=== PATIENT | female | born 1945 | race Caucasian/White ===

== ENCOUNTER 2018-06-27 01:50 | Inpatient (IN) | payer MEDICARE ==
[~2018-06-27] VITALS: Ht 172.7 cm; Wt 72.2 kg
[2018-06-27] MEDS ORDERED: ALPR0.5T5 PO (02:20)
[2018-06-27] MEDS ORDERED: LOSA1TAB25 PO (02:20)
[2018-06-27] MEDS ORDERED: ATOR10TA9 PO (02:20)
[2018-06-27] MEDS ORDERED: METF750T2 PO (02:20)
[2018-06-27] MEDS ORDERED: LEVO25TA2 PO (02:20)
[2018-06-27] MEDS ORDERED: MORPHINE SULFATE 4 MG/ML, 1ML ONE ×2 (02:23→03:10)
[2018-06-27] MEDS ORDERED: SODIUM CHLORIDE FLUSH 10ML SYR IVF ONE ×2 (02:30→03:30)
[2018-06-27] MEDS: MORPHINE SULFATE 4 MG/ML, 1ML IVPush PRN ×2 (02:37→03:12)
[2018-06-27 02:48] LABS: BASOPHILS # (AUTO) 0.12 x10^3/uL (0-0.1); BASOPHILS % (AUTO) 1 % (0-1); EOSINOPHILS # (AUTO) 0.27 x10^3/uL (0-0.4); EOSINOPHILS % (AUTO) 3 % (1-7); LYMPHOCYTES # (AUTO) 1.74 x10^3/uL (1-3.4); LYMPHOCYTES % (AUTO) 19 % (22-44); MD NO; MEAN CORPUSCULAR HEMOGLOBIN 31.7 pg (27.0-34.8); MEAN CORPUSCULAR HGB CONC 34.8 g/dL (32.4-35.8); MEAN CORPUSCULAR VOLUME 91.1 fL (80-100); MEAN PLATELET VOLUME 8.3 fL (7.4-10.4); MONOCYTES # (AUTO) 0.42 x10^3/uL (0.2-0.8); MONOCYTES % (AUTO) 5 % (2-9); NEUTROPHILS # (AUTO) 6.69 x10^3/uL (1.8-6.8); NEUTROPHILS % (AUTO) 72 % (42-75); PLATELET COUNT 296 x10^3/uL (130-400); RED BLOOD COUNT 4.37 x10^6/uL (3.82-5.3); RED CELL DISTRIBUTION WIDTH 13.5 % (9.6-15.2)
[2018-06-27 02:50] LABS: CULTURE INDICATED? YES; MICROSCOPIC INDICATED
[2018-06-27 02:56] LABS: ALANINE AMINOTRANSFERASE 16 U/L (12-78); ALBUMIN 3.7 g/dL (3.4-5.0); ANION GAP 7 mmol/L (5-15); CALCIUM 8.6 mg/dL (8.5-10.1); CHLORIDE 104 mmol/L (98-107); CREATININE 1.12 mg/dL (0.55-1.02)
[2018-06-27 02:59] LABS: ALKALINE PHOSPHATASE 65 U/L (45-117); BILIRUBIN,TOTAL 0.4 mg/dL (0.2-1.0); TOTAL PROTEIN 6.7 g/dL (6.4-8.2)
[2018-06-27] MEDS ORDERED: CEFTRIAXONE PMX 1GM/50ML 50 ML ONE (03:10)
[2018-06-27] MEDS ORDERED: CEFTRIAXONE 1,000 MG in SODIUM CHLORIDE 0.9% 50 ML IV ONE (03:30)
[2018-06-27] MEDS ORDERED: SODIUM CHLORIDE 0.9% 1,000ML IVBOLUS ONE (03:30)
[2018-06-27] MEDS: CEFTRIAXONE 1,000 MG in SODIUM CHLORIDE 0.9% 50 ML IVPB SCH (04:15)
[2018-06-27] MEDS: SODIUM CHLORIDE 0.9% 1,000 ML IV SCH ×2 (04:34→15:42)
[2018-06-27] MEDS ORDERED: DEXTROSE 5% IV SCH (05:00)
[2018-06-27] MEDS ORDERED: KETOROLAC 30 MG/1 ML IV PRN (05:00)
[2018-06-27] MEDS ORDERED: ACETAMINOPHEN 325 MG TABLET PO PRN (05:00)
[2018-06-27] MEDS ORDERED: CEFTRIAXONE IV SCH ×2 (05:00)
[2018-06-27] MEDS ORDERED: SODIUM CHLORIDE 0.9% IV SCH (05:00)
[2018-06-27] MEDS ORDERED: hydrALAzine 20 MG/ML, 1ML IVPush PRN (05:00)
[2018-06-27] MEDS ORDERED: KETOROLAC 30 MG/1 ML ONE (05:21)
[2018-06-27] MEDS: INSULIN LISPRO 100 UNITS/ML, PEN SQ-INSULIN SCH ×4 (07:00→21:00)
[2018-06-27] MEDS: morphine SULFATE 10 MG/ML, 1ML IVPush PRN ×3 (08:28→15:07)
[2018-06-27] MEDS: ENOXAPARIN 40 MG/0.4 ML SQ SCH (08:37)
[2018-06-27] MEDS: LEVOTHYROXINE 25 MCG TABLET PO SCH (08:38)
[2018-06-27] MEDS: LOSARTAN 50MG TABLET PO SCH (08:38)
[2018-06-27 08:58] VITALS: BP 159/80
[2018-06-27] MEDS: TEMPLATE NON-FORMULARY MED. (Metformin Hcl** (Metformin Hcl Er**) 750 MG) PO SCH (09:00)
[2018-06-27] MEDS: ALPRAZOLAM 0.5 MG HOMEMEDPO SCH (09:00)
[2018-06-27] MEDS ORDERED: HYDROCHLOROTHIAZIDE 12.5 MG CAPSULE PO SCH (09:00)
[2018-06-27] MEDS ORDERED: ALPRAZOLAM 0.5 MG HOMEMEDPO SCH (09:00)
[2018-06-27] MEDS ORDERED: BISACODYL 5 MG EC TABLET PO SCH (13:00)
[2018-06-27] MEDS ORDERED: BISACODYL 10 MG SUPP PR PRN (13:00)
[2018-06-27 13:52] VITALS: BP 148/77
[2018-06-27] MEDS ORDERED: BISACODYL 5 MG EC TABLET PO PRN (15:30)
[2018-06-27] MEDS: ONDANSETRON ODT 4 MG PO PRN (15:49)
[2018-06-27] MEDS ORDERED: CALCIUM CARBONATE 500 MG TAB.CHEW PO PRN (16:00)
[2018-06-27 19:27] VITALS: BP 160/77
[2018-06-27] MEDS: ATORVASTATIN 10 MG TABLET PO SCH (21:26)
[2018-06-28 01:03] VITALS: BP 150/85
[2018-06-28] MEDS: morphine SULFATE 10 MG/ML, 1ML IVPush PRN (02:42)
[2018-06-28] MEDS: ONDANSETRON ODT 4 MG PO PRN ×2 (02:47→07:36)
[2018-06-28] MEDS: CEFTRIAXONE 1,000 MG in SODIUM CHLORIDE 0.9% 50 ML IVPB SCH (04:06)
[2018-06-28] MEDS: SODIUM CHLORIDE 0.9% 1,000 ML IV SCH (04:06)
[2018-06-28 05:29] LABS: BASOPHILS # (AUTO) 0.04 x10^3/uL (0-0.1); BASOPHILS % (AUTO) 0 % (0-1); EOSINOPHILS # (AUTO) 0.11 x10^3/uL (0-0.4); EOSINOPHILS % (AUTO) 1 % (1-7); LYMPHOCYTES # (AUTO) 1.15 x10^3/uL (1-3.4); LYMPHOCYTES % (AUTO) 9 % (22-44); MD NO; MEAN CORPUSCULAR HEMOGLOBIN 31.3 pg (27.0-34.8); MEAN CORPUSCULAR HGB CONC 34.2 g/dL (32.4-35.8); MEAN CORPUSCULAR VOLUME 91.4 fL (80-100); MEAN PLATELET VOLUME 8.3 fL (7.4-10.4); MONOCYTES # (AUTO) 0.47 x10^3/uL (0.2-0.8); MONOCYTES % (AUTO) 4 % (2-9); NEUTROPHILS # (AUTO) 10.89 x10^3/uL (1.8-6.8); NEUTROPHILS % (AUTO) 86 % (42-75); PLATELET COUNT 310 x10^3/uL (130-400); RED BLOOD COUNT 4.25 x10^6/uL (3.82-5.3); RED CELL DISTRIBUTION WIDTH 13.8 % (9.6-15.2)
[2018-06-28] MEDS: LEVOTHYROXINE 25 MCG TABLET PO SCH (05:31)
[2018-06-28] MEDS: ENOXAPARIN 40 MG/0.4 ML SQ SCH (05:32)
[2018-06-28 05:41] LABS: ANION GAP 7 mmol/L (5-15); CALCIUM 7.9 mg/dL (8.5-10.1); CHLORIDE 98 mmol/L (98-107)
[2018-06-28 05:43] LABS: CREATININE 0.64 mg/dL (0.55-1.02)
[2018-06-28 06:44] VITALS: BP 168/92
[2018-06-28] MEDS: INSULIN LISPRO 100 UNITS/ML, PEN SQ-INSULIN SCH ×4 (07:00→20:22)
[2018-06-28] MEDS: ALPRAZOLAM 0.5 MG HOMEMEDPO SCH (07:30)
[2018-06-28] MEDS: TEMPLATE NON-FORMULARY MED. (Metformin Hcl** (Metformin Hcl Er**) 750 MG) PO SCH (07:30)
[2018-06-28] MEDS: POTASSIUM CHLORIDE 20 MEQ TAB.ER.PRT PO SCH ×2 (07:31→17:48)
[2018-06-28] MEDS: FAMOTIDINE 20 MG TABLET PO SCH (07:32)
[2018-06-28] MEDS: LOSARTAN 50MG TABLET PO SCH (07:32)
[2018-06-28] MEDS ORDERED: MAGNESIUM CITRATE 300ML ORAL SOL PO ONE (08:00)
[2018-06-28 14:42] VITALS: BP 177/94
[2018-06-28] MEDS: ATORVASTATIN 10 MG TABLET PO SCH (20:22)
[2018-06-29] MEDS: LEVOTHYROXINE 25 MCG TABLET PO SCH (04:50)
[2018-06-29] MEDS: ENOXAPARIN 40 MG/0.4 ML SQ SCH (04:50)
[2018-06-29] MEDS: CEFTRIAXONE 1,000 MG in SODIUM CHLORIDE 0.9% 50 ML IVPB SCH (04:50)
[2018-06-29] MEDS: ONDANSETRON ODT 4 MG PO PRN (04:58)
[2018-06-29 06:30] LABS: BASOPHILS # (AUTO) 0.04 x10^3/uL (0-0.1); BASOPHILS % (AUTO) 0 % (0-1); EOSINOPHILS # (AUTO) 0.14 x10^3/uL (0-0.4); EOSINOPHILS % (AUTO) 2 % (1-7); LYMPHOCYTES % (AUTO) 14 % (22-44); MD NO; MEAN CORPUSCULAR HEMOGLOBIN 31.4 pg (27.0-34.8); MEAN CORPUSCULAR HGB CONC 34.6 g/dL (32.4-35.8); MEAN CORPUSCULAR VOLUME 90.8 fL (80-100); MEAN PLATELET VOLUME 8.1 fL (7.4-10.4); MONOCYTES # (AUTO) 0.52 x10^3/uL (0.2-0.8); MONOCYTES % (AUTO) 6 % (2-9); NEUTROPHILS % (AUTO) 79 % (42-75); PLATELET COUNT 321 x10^3/uL (130-400); RED BLOOD COUNT 4.51 x10^6/uL (3.82-5.3)
[2018-06-29] MEDS ORDERED: METRONIDAZOLE PMX 500MG/100ML 100 ML IV SCH (06:30)
[2018-06-29 06:39] LABS: ALBUMIN 3.7 g/dL (3.4-5.0); ANION GAP 6 mmol/L (5-15); CALCIUM 8.2 mg/dL (8.5-10.1); CHLORIDE 100 mmol/L (98-107); CREATININE 0.74 mg/dL (0.55-1.02)
[2018-06-29] MEDS: INSULIN LISPRO 100 UNITS/ML, PEN SQ-INSULIN SCH ×2 (06:49→11:10)
[2018-06-29] MEDS: FAMOTIDINE 20 MG TABLET PO SCH (07:22)
[2018-06-29] MEDS: TEMPLATE NON-FORMULARY MED. (Metformin Hcl** (Metformin Hcl Er**) 750 MG) PO SCH (07:22)
[2018-06-29] MEDS: ALPRAZOLAM 0.5 MG HOMEMEDPO SCH (07:22)
[2018-06-29 07:35] VITALS: BP 160/88
[2018-06-29] MEDS: LOSARTAN 50MG TABLET PO SCH (07:46)
[2018-06-29] MEDS ORDERED: CIPR500T3 PO (10:41)
[2018-06-29] MEDS ORDERED: METR500T8 PO (10:41)
== END 2018-06-29 13:55 | disposition home or self-care (01) | DRG 690 ==
LOC: ED 03:22 → SUATTDRO 04:33 → EDIP 05:05 → 4NOR 05:36 → DCLOUNGE 06-29 13:40
PROVIDERS: ADMIT Hospitalist; ATTEND Hospitalist
DX: N10 Acute pyelonephritis (principal); K57.32 Diverticulitis of large intestine without perforation or abscess without bleeding; E03.9 Hypothyroidism, unspecified; E11.9 Type 2 diabetes mellitus without complications; B96.1 Klebsiella pneumoniae [K. pneumoniae] as the cause of diseases classified elsewhere; F41.9 Anxiety disorder, unspecified; I10 Essential (primary) hypertension; K59.00 Constipation, unspecified; E87.6 Hypokalemia; M54.9 Dorsalgia, unspecified; E66.9 Obesity, unspecified; K62.3 Rectal prolapse; Z87.440 Personal history of urinary (tract) infections; Z90.710 Acquired absence of both cervix and uterus; Z68.24 Body mass index [BMI] 24.0-24.9, adult; N17.9 Acute kidney failure, unspecified
CPT/HCPCS: 36415; 74176; 80048; 80053; 81001; 82040; 82962; 83690; 83735; 84100; 85025; 87077; 87086; 87186; 96374; 96375; 99285; J0696; J1650; J1885; Q0162; J2270; J7030

== ENCOUNTER 2020-12-08 21:47 | Observation (INO) | payer MEDICARE ==
[~2020-12-08] VITALS: Ht 172.7 cm; Wt 72.1 kg
[~2020-12-08 21:47] MED LIST: ALPR0.5T5 PO; ATOR10TA9 PO; CIPR500T3 PO; LEVO25TA2 PO; LOSA1TAB25 PO; METF750T42 PO; METR-90 PO
--- NOTE | 2020-12-08 22:07 | NUR ---
Pt hooked up to pt escort, RN at bedside, provider at bedside, pt's son at bedside. Pt shaking, voice shaking. Reports she does not currently feel palpitations or racing heart.
[2020-12-08] MEDS ORDERED: SODIUM CHLORIDE 0.9% 1,000ML IVBOLUS ONE (22:30)
[2020-12-08] MEDS ORDERED: SODIUM CHLORIDE FLUSH 10ML SYR IVF ONE (22:30)
[2020-12-08] MEDS ORDERED: LORazepam 2 MG/ML, 1ML IVPush ONE (22:30)
[2020-12-08] MEDS ORDERED: ONDANSETRON 2MG/ML, 2ML IVPush ONE (22:30)
[2020-12-08] MEDS ORDERED: ONDANSETRON 2MG/ML, 2ML ONE (22:36)
[2020-12-08] MEDS ORDERED: LORazepam 2 MG/ML, 1ML ONE (22:37)
[2020-12-08 23:13] LABS: BASOPHILS % (AUTO) 0 % (0-1); EOSINOPHILS % (AUTO) 0 % (1-7); LYMPHOCYTES % (AUTO) 5 % (22-44); MEAN CORPUSCULAR HEMOGLOBIN 30.5 pg (27.0-34.8); MEAN CORPUSCULAR HGB CONC 34.4 g/dL (32.4-35.8); MEAN PLATELET VOLUME 8.1 fL (7.4-10.4); MONOCYTES % (AUTO) 2 % (2-9); NEUTROPHILS % (AUTO) 93 % (42-75); PLATELET COUNT 297 x10^3/uL (130-400); RED BLOOD COUNT 4.48 x10^6/uL (3.82-5.3); RED CELL DISTRIBUTION WIDTH 13.8 % (9.6-15.2)
[2020-12-08 23:20] LABS: ALBUMIN 3.8 g/dL (3.4-5.0); ANION GAP 11 mmol/L (5-15); CALCIUM 8.4 mg/dL (8.5-10.1); CHLORIDE 101 mmol/L (98-107)
[2020-12-08 23:31] LABS: ALANINE AMINOTRANSFERASE 19 U/L (12-78); ALKALINE PHOSPHATASE 82 U/L (45-117); BILIRUBIN,TOTAL 0.7 mg/dL (0.2-1.0); CREATININE 0.96 mg/dL (0.55-1.02); TOTAL PROTEIN 6.8 g/dL (6.4-8.2)
--- NOTE | 2020-12-08 23:33 | NUR ---
Pt reports they feel "calmer" and they don't feel shaky anymore. Pt resting, eyes closed, awakens to nurse entering room. Breathing equal, nonlabored.
[2020-12-08 23:34] LABS: MD SCAN
[2020-12-08 23:43] LABS: FREE T4 (FREE THYROXINE) 1.43 ng/dL (0.76-1.46)
--- NOTE | 2020-12-08 23:53 | NUR ---
UA collected and tubed to lab. Pt ambulated to bathroom- felt very dizzy, unsteady on feet.
[2020-12-09 00:03] LABS: MICROSCOPIC AUTO
[2020-12-09 01:38] LABS: TROPONIN I < 0.015 ng/mL (0.000-0.045)
[2020-12-09] MEDS ORDERED: OMNIPAQUE 350 MG/ML, 100ML BOTTLE ONE (01:41)
--- NOTE | 2020-12-09 02:29 | NUR ---
Provider at bedside.
[2020-12-09] MEDS ORDERED: DIPHENHYDRAMINE 25 MG CAPSULE PO ONE (03:00)
[2020-12-09] MEDS ORDERED: LORazepam 1MG TABLET PO ONE (03:00)
[2020-12-09 03:11] VITALS: BP 136/72
[2020-12-09] MEDS ORDERED: POLY17PO5 PO (04:47)
[2020-12-09] MEDS ORDERED: ACETAMINOPHEN 325 MG TABLET PO PRN (06:00)
[2020-12-09] MEDS ORDERED: ONDANSETRON 2MG/ML, 2ML IVPush PRN (06:00)
[2020-12-09] MEDS: CEFTRIAXONE PMX 1GM/50ML 50 ML IV SCH (06:13)
[2020-12-09] MEDS: LEVOTHYROXINE 25 MCG TABLET PO SCH (06:14)
[2020-12-09 06:31] VITALS: BP 134/81
[2020-12-09] MEDS: INSULIN LISPRO 100 UNITS/ML, PEN SQ-INSULIN SCH ×4 (07:00→21:36)
[2020-12-09] MEDS: POLYETHYLENE GLYCOL 17 GM PACKET PO SCH (07:47)
[2020-12-09 12:05] VITALS: BP 126/59
[2020-12-09 18:58] VITALS: BP 151/79
[2020-12-09] MEDS ORDERED: ATORVASTATIN 10 MG TABLET PO SCH (21:00)
[2020-12-10 00:42] VITALS: BP 97/55
[2020-12-10] MEDS ORDERED: DIPHENHYDRAMINE 25 MG CAPSULE PO ONE (03:30)
[2020-12-10] MEDS: CEFTRIAXONE PMX 1GM/50ML 50 ML IV SCH (05:11)
[2020-12-10] MEDS: LEVOTHYROXINE 25 MCG TABLET PO SCH (05:11)
[2020-12-10 06:49] LABS: BASOPHILS % (AUTO) 1 % (0-1); EOSINOPHILS % (AUTO) 1 % (1-7); LYMPHOCYTES % (AUTO) 7 % (22-44); MEAN CORPUSCULAR HEMOGLOBIN 30.9 pg (27.0-34.8); MEAN CORPUSCULAR HGB CONC 34.4 g/dL (32.4-35.8); MEAN PLATELET VOLUME 7.9 fL (7.4-10.4); MONOCYTES % (AUTO) 5 % (2-9); NEUTROPHILS % (AUTO) 87 % (42-75); PLATELET COUNT 259 x10^3/uL (130-400); RED BLOOD COUNT 4.55 x10^6/uL (3.82-5.3); RED CELL DISTRIBUTION WIDTH 13.8 % (9.6-15.2)
[2020-12-10 06:51] LABS: ANION GAP 6 mmol/L (5-15); CALCIUM 8.7 mg/dL (8.5-10.1); CHLORIDE 101 mmol/L (98-107); CREATININE 0.87 mg/dL (0.55-1.02)
[2020-12-10 06:52] VITALS: BP 133/78
[2020-12-10 06:55] LABS: MD NO
[2020-12-10] MEDS: INSULIN LISPRO 100 UNITS/ML, PEN SQ-INSULIN SCH ×2 (07:00→11:00)
[2020-12-10] MEDS: POLYETHYLENE GLYCOL 17 GM PACKET PO SCH (08:15)
[2020-12-10] MEDS ORDERED: AMOX1TAB64 PO (12:41)
== END 2020-12-10 14:30 | disposition home or self-care (01) ==
LOC: ED 12-09 02:23 → INTOOBSV 12-09 03:04 → EDIP 12-09 03:04 → 4WST 12-09 03:09
PROVIDERS: ADMIT Family Medicine; ATTEND Internal Medicine
DX: D72.829 Elevated white blood cell count, unspecified (principal); R65.10 Systemic inflammatory response syndrome (SIRS) of non-infectious origin without acute organ dysfunction; E11.65 Type 2 diabetes mellitus with hyperglycemia; E03.9 Hypothyroidism, unspecified; R42 Dizziness and giddiness; E78.5 Hyperlipidemia, unspecified; K59.09 Other constipation; I10 Essential (primary) hypertension; E87.2 Acidosis; R00.0 Tachycardia, unspecified; K44.9 Diaphragmatic hernia without obstruction or gangrene; K57.30 Diverticulosis of large intestine without perforation or abscess without bleeding; G89.29 Other chronic pain; R82.90 Unspecified abnormal findings in urine; F41.9 Anxiety disorder, unspecified; Z79.899 Other long term (current) drug therapy; Z87.440 Personal history of urinary (tract) infections; Z90.710 Acquired absence of both cervix and uterus
CPT/HCPCS: 36415; 71045; 71275; 74177; 80048; 80053; 81001; 82962; 83036; 83605; 83735; 84100; 84145; 84439; 84443; 84484; 85025; 87040; 87086; 93005; 96365; 96366; 96375; 97162; 97166; 99285; G0378; J0696; J1815; J2060; J2405; J7030; Q0163; Q9967

== ENCOUNTER → 2021-07-01 | Outpatient (CLI) | payer MEDICARE ==
[~2021-07-01] MED LIST changes: -ALPR0.5T5 PO; +ALPR0.5T9 PO; +AMOX1TAB64 PO; -CIPR500T3 PO; +CIPR500T4 PO; +NITR100C56 PO; +POLY17PO5 PO
[2021-07-01 13:16] LABS: ALANINE AMINOTRANSFERASE 16 U/L (12-78); ALBUMIN 4.2 g/dL (3.4-5.0); CALCIUM 9.3 mg/dL (8.5-10.1); CREATININE 0.83 mg/dL (0.55-1.02)
[2021-07-01 13:18] LABS: ALKALINE PHOSPHATASE 76 U/L (45-117); BILIRUBIN,TOTAL 0.6 mg/dL (0.2-1.0); TOTAL PROTEIN 7.3 g/dL (6.4-8.2)
[2021-07-01 13:25] LABS: CHLORIDE 95 mmol/L (98-107)
[2021-07-01 13:26] LABS: ANION GAP 11 mmol/L (5-15)
== END | disposition home or self-care (01) ==
LOC: STAR 11:53
PROVIDERS: ATTEND Obstetrics & Gynecology Female Pelvic Medicine and Reconstructive Surgery
DX: Z01.818 Encounter for other preprocedural examination (principal); R10.2 Pelvic and perineal pain; N81.10 Cystocele, unspecified; N81.6 Rectocele; N39.3 Stress incontinence (female) (male)
CPT/HCPCS: 36415; 80053; 93005

== ENCOUNTER 2021-07-06 10:29 | Day surgery (SDC) | payer MEDICARE ==
[~2021-07-06] VITALS: Ht 172.7 cm; Wt 67.2 kg
[~2021-07-06 10:29] MED LIST changes: +ACETAMINOPHEN 325 MG TABLET PO PRN; +BUPIVACAINE/PF 0.25% ONE; +EPHEDRINE 50 MG/ML, 1ML IVPush PRN; +EPINEPHRINE 1 MG/ML, 1ML ONE; +FENTANYL PF 100 MCG/2ML IV PRN; +GENTAMICIN 80 MG/2 ML ONE; +HYDROmorphone 1 MG/ML, 1ML INJ IVPush PRN; +LABETALOL 5MG/ML, 20ML IV PRN; +LIDOCAINE/PF 1%, 30ML ONE; +MEPERIDINE/PF 25MG/0.5ML IVPush PRN; +ONDANSETRON 2MG/ML, 2ML IVPush PRN; +OXYcodone 5 MG/5 ML ORAL.SOL UDC PO PRN; +PROMETHAZINE 25 MG/ML, 1ML IVPush PRN; +VANCOMYCIN 500 MG ONE; +hydrALAzine 20 MG/ML, 1ML IV PRN
[2021-07-06] MEDS ORDERED: LACTATED RINGERS 1,000 ML IV SCH (11:00)
[2021-07-06] MEDS ORDERED: CHLORHEXIDINE 15 ML UDC PO ONE (11:00)
[2021-07-06 11:24] VITALS: BP 151/73
[2021-07-06] MEDS ORDERED: FENTANYL PF 100 MCG/2ML ONE (14:34)
[2021-07-06] MEDS ORDERED: ONDANSETRON 2MG/ML, 2ML ONE (14:37)
[2021-07-06] MEDS ORDERED: LIDOCAINE-MPF 2% ,5ML ONE ×2 (14:37→14:56)
[2021-07-06] MEDS ORDERED: DEXAMETHASONE 4 MG/ML, 1ML ONE (14:37)
[2021-07-06] MEDS ORDERED: PROPOFOL 10 MG/ML, 20ML ONE (14:37)
[2021-07-06] MEDS ORDERED: CEFAZOLIN 1,000 MG ONE (14:37)
[2021-07-06] MEDS ORDERED: SODIUM CHLORIDE 0.9% PF 10ML ONE (14:37)
[2021-07-06] MEDS ORDERED: KETOROLAC 30 MG/1 ML ONE (14:56)
[2021-07-06] MEDS ORDERED: EPHEDRINE 50 MG/ML, 1ML ONE (15:12)
== END 2021-07-06 17:32 | disposition home or self-care (01) ==
LOC: OUT 10:29
PROVIDERS: ATTEND Obstetrics & Gynecology Female Pelvic Medicine and Reconstructive Surgery
DX: N39.3 Stress incontinence (female) (male) (principal); N81.89 Other female genital prolapse; N81.11 Cystocele, midline; N81.6 Rectocele; I10 Essential (primary) hypertension; E11.9 Type 2 diabetes mellitus without complications; E03.9 Hypothyroidism, unspecified; E78.5 Hyperlipidemia, unspecified; F41.9 Anxiety disorder, unspecified; Z72.89 Other problems related to lifestyle; Z79.899 Other long term (current) drug therapy; Z87.891 Personal history of nicotine dependence; Z98.890 Other specified postprocedural states
CPT/HCPCS: 57265; 57288; 82962; C1771; J0171; J0690; J1100; J1580; J1885; J2405; J2704; J3010; J3370; J7120